=== PATIENT | female | born 1950 | race Hispanic/Latino ===

== ENCOUNTER 2024-09-24 14:41 | Emergency (ER) | payer MEDICARE ==
[~2024-09-24] VITALS: Ht 160 cm; Wt 93.0 kg
[~2024-09-24 14:41] MED LIST: ASCO100031 PO; CHOL200074 PO; DOCU240C90 PO; FE F PO; FERR325T22 PO; FURO40TA5 PO; INSU100I3 SQ; INSU3INS3 SQ; LEVO500T2 PO; LOSA100T59 PO
[2024-09-24 14:45] VITALS: BP_DIAS 73
[2024-09-24 15:29] LABS: BASOPHILS # (AUTO) 0.03 K/uL (0.00-0.20); BASOPHILS % (AUTO) 0.4 % (0.0-5.0); EOSINOPHILS # (AUTO) 0.24 K/uL (0.00-0.70); EOSINOPHILS % (AUTO) 3.1 % (0.0-8.0); IMMATURE GRANULOCYTE ABSOLUTE 0.07 K/uL (0-1); MEAN CORPUSCULAR HEMOGLOBIN 30.6 pg (27.0-33.0); MEAN CORPUSCULAR HGB CONC 33.7 g/dL (32.0-36.0); MEAN CORPUSCULAR VOLUME 90.7 fL (79-99); MONOCYTES # (AUTO) 0.6 K/uL (0.1-1.0); MONOCYTES % (AUTO) 7.5 % (3.0-13.0); NEUTROPHILS # (AUTO) 4.9 K/uL (1.8-7.7); NEUTROPHILS % (AUTO) 62.1 % (40.0-77.0); PLATELET COUNT (AUTO) 285 K/uL (130-400); RED BLOOD CELL COUNT(AUTO) 3.86 MIL/uL (4.00-5.50); RED CELL DISTRIBUTION WIDTH 12.5 % (11.0-15.5); WHITE BLOOD COUNT (AUTO) 7.8 K/uL (4.8-10.8)
--- NOTE | 2024-09-24 15:29 | ERN ---
General Chief Complaint: Lower Extremity Pain/Injury Stated Complaint: LEG PAIN Time Seen by MD: 14:45 History of Present Illness Initial Comments 74-year-old female with a history of dementia presents to the ED via EMS for evaluation of right lower extremity swelling onset 2 weeks ago. Family reports redness, but denies any other associated symptoms. Family states that patient had an infection on that leg a while ago. No other medical or surgical history mentioned. Allergies: Coded Allergies: cephalexin (Verified Allergy, Unknown, RASH, 09/01/17) Home Meds Active Scripts Hydrocortisone (Hydrocortisone 2.5% Oint) 2.5 % Oint, 1 APPL TP BID for 10 Days, #60 GM 0 Refills apply to affected area(s) Prov:LUIS E AGUILERA DO 09/24/24 Levofloxacin (Levaquin 750Mg Tabs) 750 Mg Tablet, 1 TAB PO DAILY for 10 Days, #10 TAB 0 Refills Prov:LUIS E AGUILERA DO 09/24/24 Levofloxacin (Levaquin) 500 Mg Tablet, 500 MG PO DAILY, #14 TAB Prov:JL THAKKAR MD 09/03/17 Reported Medications Insulin Aspart (Novolog Flexpen) 100 Unit/1 Ml Insuln.pen, 0 SQ ACDINNER, SYRINGE 09/02/17 Insulin Glargine,Hum.rec.anlog (Lantus Solostar) 100 Unit/1 Ml Insuln.pen, 38 UNIT SQ ACBKFST, SYRINGE 09/02/17 Ascorbic Acid (Vitamin C) 1,000 Mg Tablet, 1000 MG PO AM, TAB 09/02/17 Cholecalciferol (Vitamin D3) (Vitamin D-3) 2,000 Unit Capsule, 1000 UNIT PO AM, CAP 09/02/17 Fe Fumarate/Brenda/FA/Bcomp&C (Nephron FA Tablet) 1 Each Tablet, 1 EACH PO AM, TAB 09/02/17 Ferrous Sulfate (Ferrous Sulfate) 325 Mg Tablet, 325 MG PO AM, TAB 09/02/17 Losartan Potassium (Losartan Potassium) 100 Mg Tablet, 100 MG PO AM, TAB 09/02/17 Docusate Calcium (Stool Softener) 240 Mg Capsule, 240 MG PO AM, CAP 09/02/17 Furosemide (Furosemide) 40 Mg Tablet, 40 MG PO BID, TAB 09/02/17 Past Medical History Past Medical History: CHF, Diabetes-Type II, Hypertension Past Surgical History: None ROS Dictation Constitutional: Negative for fever,chills, and weight loss Eyes: Negative for injury, pain,redness, and discharge ENT: Negative for injury,pain or swelling Cardiovascular: Negative for chest pain, palpitations, and edema Respiratory: Negative for shortness of breath, cough, and wheezing, Abdomen/GI: Negative for abdominal pain, nausea, vomiting, diarrhea, and constipation Back: Negative for injury and pain : Negative for injury, bleeding and discharge MS/Extremity: Lower extremity swelling and erythema, Negative for injury and deformity Skin: Negative for rash, and discoloration Neuro: Negative for headache, weakness, numbness, tingling, and seizure Physical Exam Physical Exam Dictation General: awake, alert, NAD Head/Face: Normocephalic, atraumatic Eyes: PERRL, EOMI, vision at baseline ENT: oral cavity clear, TMs clear, no signs of infection Neck: Trachea midline, supple, no nuchal rigidity Cardiovascular: RRR, normal S1/S2, No MRGs, no JVD Respiratory: CTAB, no respiratory distress, No rales or wheezes Abdomen: Soft, non-tender, non-distended, normal bowel sounds, no guarding or rebound. Skin: Warm, dry, normal turgor, no rash MS/Extremity: Pulses equal, no cyanosis, neurovascular intact, right leg swelling, right anterior calf erythema Results Laboratory and Microbiology Lab and Micro Result Laboratory Tests Test 09/24/24 15:00 09/24/24 15:05 09/24/24 15:25 Whole Blood Glucose 118 MG/DL (70-110) H White Blood Count 7.8 K/uL (4.8-10.8) Red Blood Count 3.86 MIL/uL (4.00-5.50) L Hemoglobin 11.8 g/dL (12.0-16.0) L Hematocrit 35.0 % (36-48) L Mean Corpuscular Volume 90.7 fL (79-99) Mean Corpuscular Hemoglobin 30.6 pg (27.0-33.0) Mean Corpuscular Hemoglobin Concent 33.7 g/dL (32.0-36.0) Red Cell Distribution Width 12.5 % (11.0-15.5) Platelet Count 285 K/uL (130-400) Mean Platelet Volume 10.4 fL (7.5-10.5) Immature Granulocyte % (Auto) 0.9 % (0-1) Neutrophils (%) (Auto) 62.1 % (40.0-77.0) Lymphocytes (%) (Auto) 26.0 % (21.0-51.0) Monocytes (%) (Auto) 7.5 % (3.0-13.0) Eosinophils (%) (Auto) 3.1 % (0.0-8.0) Basophils (%) (Auto) 0.4 % (0.0-5.0) Neutrophils # (Auto) 4.9 K/uL (1.8-7.7) Lymphocytes # (Auto) 2.0 K/uL (1.0-4.8) Monocytes # (Auto) 0.6 K/uL (0.1-1.0) Eosinophils # (Auto) 0.24 K/uL (0.00-0.70) Basophils # (Auto) 0.03 K/uL (0.00-0.20) Absolute Immature Granulocyte (auto 0.07 K/uL (0-1) Nucleated Red Blood Cells 0.0 % (0.0-0.19) Sodium Level 135 mmol/L (136-145) L Potassium Level 4.5 mmol/L (3.5-5.1) Chloride Level 100 mmol/L (101-111) L Carbon Dioxide Level 30 mmol/L (21-32) Blood Urea Nitrogen 64 mg/dL (7-18) H Creatinine 1.4 mg/dL (0.5-1.0) H Glomerular Filtration Rate Calc 39 mL/min (>90) Random Glucose 111 mg/dL (70-105) H Lactic Acid Level 2.0 mmol/L (0.8-2.5) Total Calcium 10.9 mg/dL (8.5-10.1) H Magnesium Level 2.10 mg/dL (1.80-2.40) Total Bilirubin 0.3 mg/dL (0.2-1.0) Direct Bilirubin < 0.1 mg/dL (0.0-0.3) Aspartate Amino Transf (AST/SGOT) 27 U/L (10-37) Alanine Aminotransferase (ALT/SGPT) 10 U/L (12-78) L Alkaline Phosphatase 65 U/L (50-136) Total Creatine Kinase 153 U/L (21-232) # Troponin I High Sensitivity 6.3 ng/L (4-50) B-Type Natriuretic Peptide 42 pg/mL (0-100) Total Protein 6.8 g/dL (6.0-8.3) Albumin 3.3 g/dL (3.5-5.0) L Procalcitonin 0.12 ng/mL (0.05-0.5) Urine Color LIGHT-RED (YELLOW) Urine Appearance HAZY (CLEAR) Urine pH 6.5 (5.0-8.0) Urine Specific [place] 1.004 (1.001-1.031) Urine Protein NEGATIVE mg/dL (NEGATIVE) Urine Glucose (UA) NEGATIVE mg/dL (NEGATIVE) Urine Ketones NEGATIVE mg/dL (NEGATIVE) Urine Occult Blood LARGE (NEGATIVE) H Urine Nitrate NEGATIVE (NEGATIVE) Urine Bilirubin NEGATIVE mg/dL (NEGATIVE) Urine Urobilinogen 0.2 mg/dL (0.2-1.0) Urine Leukocyte Esterase NEGATIVE Trisha/uL Urine RBC TNTC /HPF (0-1) H Urine WBC 2-5 /HPF (0-1) H Urine Squamous Epithelial Cells RARE /HPF (0-2) Urine Bacteria None /HPF (None Seen) Labs Reviewed?: Yes MDM CBC: no leukocytosis or shift. Metabolic panel shows some mild dehydration elevated BUN to creatinine ratio. Glucose stable. Lactic acid stable. Liver enzymes stable. CK normal. Troponin normal. BNP normal procalcitonin normal. Urinalysis shows some some blood otherwise unremarkable CXR per my an independent interpretation shows no focal infiltrates or abnormalities. Ultrasound of the lower extremity shows no signs of acute DVT per my independent interpretation. I have low suspicion for any life threats. This appears to be chronic swelling. There is a small area of redness. Discussed with the family the plan for this, they are worried that it may be cellulitis so we will give a course of oral antibiotics and recommend PCP follow up. MDM: Differential diagnosis: Leg swelling, DVT Previous outside records reviewed: Old ER visits. Need for hospitalization: Patient does not meet criteria for hospitalization. Need for emergency major/minor surgery: No Patient's prior external medical records from other ER visits were reviewed by me as indicated. Prior testing and results from previous visits were reviewed. Prior tests were taken into account with medical decision making and resource utilization, independent historian/historians were used to obtain complete me dical history. I independently interpreted the test that were performed, results were reviewed by me and considered findings on radiology if ordered. Medical management and examination interpretation discussions were had by me with other qualified healthcare professionals as indicated for the patient's care. ED Course Orders Procedure Category Date Status Time Cardiac Panel LAB 09/24/24 Complete 14:45 Cbc With Differential LAB 09/24/24 Complete 14:45 Basic Metabolic Panel LAB 09/24/24 Complete 14:45 B-Type Natriuretic LAB 09/24/24 Complete Peptide 14:45 Magnesium LAB 09/24/24 Complete 14:45 Urinalysis Profile LAB 09/24/24 Complete 14:45 Hepatic Function Panel LAB 09/24/24 Complete 14:45 Lactic Acid LAB 09/24/24 Complete 14:45 Procalcitonin LAB 09/24/24 Complete 14:45 Us Venous Doppler US 09/24/24 Resulted Unilateral 14:45 Chest 1vw RAD 09/24/24 Resulted 14:45 Vital Signs Date Time Temp Pulse Resp B/P (MAP) Pulse Ox O2 Delivery O2 Flow Rate FiO2 09/24/24 17:25 97.3 67 18 136/ 96 Room Air* 0 21 09/24/24 14:45 97.5 87 18 144/73 94 Room Air 09/24/24 14:45 97.5 83 18 144/73 94 Room Air* 0 21 DX & DISP Disposition: Discharge Departure Impression: Primary Impression: Right leg swelling Additional Impression: Lower extremity cellulitis Condition: Stable Scripts Hydrocortisone (Hydrocortisone 2.5% Oint) 2.5 % Oint 1 APPL TP BID for 10 Days, #60 GM 0 Refills apply to affected area(s) Prov: LUIS E AGUILERA DO 09/24/24 Levofloxacin (Levaquin 750Mg Tabs) 750 Mg Tablet 1 TAB PO DAILY for 10 Days, #10 TAB 0 Refills Prov: LUIS E AGUILERA DO 09/24/24 Additional Instructions: There are no signs of sepsis here today. Your vital signs are stable. Your labwork is unremarkable. The Ultrasound does not show any signs of blood clots. You may have a mild cellulitis, or skin infection. I've prescribed antibiotics and hydrocortisone cream. Use as prescribed. Please follow up with your primary doctor next week for re-evaluation. Return to the emergency department as needed. Referrals: LIZETTE LEIVA (PCP) I have reviewed, & agreed with my scribe's, documentation. (Entered by Poppy Ruiz, acting as a scribe for Dr. Aguilera) I personally scribed for LUIS E AGUILERA DO (HANNAH) on 09/24/24 at 15:29. Electronically submitted by Poppy Ruiz ([email or web address]). LUIS E AGUILERA DO Sep 24, 2024 15:29
[2024-09-24 15:35] LABS: BILIRUBIN,URINE NEGATIVE (NEGATIVE); GLUCOSE, URINE (UA) NEGATIVE (NEGATIVE); KETONES,URINE NEGATIVE (NEGATIVE); LEUKOCYTE ESTERASE ,URINE NEGATIVE Leu/uL (NEGATIVE); NITRATE,URINE NEGATIVE (NEGATIVE); OCCULT BLOOD,URINE LARGE (NEGATIVE); PH,URINE 6.5 (5.0-8.0); PROTEIN,URINE NEGATIVE (NEGATIVE); UROBILINOGEN,URINE 0.2 mg/dL (0.2-1.0)
[2024-09-24 15:36] LABS: ADD UA MICROSCOPIC YES; COLOR,URINE LIGHT-RED (YELLOW)
[2024-09-24 15:37] LABS: APPEARANCE,URINE HAZY (CLEAR)
--- NOTE | 2024-09-24 15:39 | HMCIMG ---
US VENOUS DOPPLER UNILATERAL HISTORY: DVT COMPARISON: None TECHNIQUE: Right lower extremity venous Doppler ultrasound study was performed. FINDINGS: The right common femoral, femoral, popliteal, and posterior tibial veins are visualized. Normal flow with augmentation and compressibilities are demonstrated. Right greater saphenous vein is patent. IMPRESSION: 1. No evidence of deep venous thrombosis is seen.
[2024-09-24 15:45] LABS: MUCUS,URINE RARE LPF (None Seen); RBC,URINE TNTC /HPF (0-1); SQUAMOUS EPITHELIAL CELL,UR RARE /HPF (0-2)
[2024-09-24 15:51] LABS: B-TYPE NATRIURETIC PEPTIDE 42 pg/mL (0-100); CARBON DIOXIDE 30 mmol/L (21-32); CHLORIDE 100 mmol/L (101-111); CREATININE 1.4 mg/dL (0.5-1.0); GLOMERULAR FILTR. RATE CALC 39 mL/min (>90); GLUCOSE,RANDOM 111 mg/dL (70-105); POTASSIUM 4.5 mmol/L (3.5-5.1); SODIUM SERUM 135 mmol/L (136-145); UREA NITROGEN, BLOOD 64 mg/dL (7-18)
[2024-09-24 15:58] LABS: ALANINE AMINOTRANSFERASE 10 U/L (12-78); ALBUMIN 3.3 g/dL (3.5-5.0); ASPARTATE AMINOTRANSFERASE 27 U/L (10-37); BILIRUBIN,DIRECT < 0.1 mg/dL (0.0-0.3); BILIRUBIN,TOTAL 0.3 mg/dL (0.2-1.0); CREATINE KINASE, TOTAL 153 U/L (21-232); TOTAL PROTEIN, SERUM 6.8 g/dL (6.0-8.3)
--- NOTE | 2024-09-24 15:58 | HMCIMG ---
CHEST 1VW HISTORY: Fluid overload COMPARISON: 09/01/2017 FINDINGS: A frontal projection of the chest was obtained. Prominent interstitial markings are seen with possible superimposed infiltrates. The heart is borderline enlarged. Aortic calcifications are seen. Mild degenerative changes are seen. IMPRESSION: 1. Prominent interstitial markings are seen with possible superimposed infiltrates.
[2024-09-24] MEDS ORDERED: LEVO750T68 PO (16:35)
[2024-09-24] MEDS ORDERED: HC2530O TP (16:35)
[2024-09-24 17:25] VITALS: BP_SYST 136; PULSE 67; RESP 18; TEMP 97.3; O2SAT 96
== END 2024-09-24 17:10 | disposition home or self-care (01) ==
LOC: EDH 14:41
DX: L03.115 Cellulitis of right lower limb (principal); M79.604 Pain in right leg; E11.9 Type 2 diabetes mellitus without complications; F03.90 Unspecified dementia, unspecified severity, without behavioral disturbance, psychotic disturbance, mood disturbance, and anxiety; I11.0 Hypertensive heart disease with heart failure; I50.9 Heart failure, unspecified; Z79.899 Other long term (current) drug therapy; Z88.1 Allergy status to other antibiotic agents
CPT/HCPCS: 36415; 71045; 80048; 80076; 81001; 82550; 82948; 83605; 83735; 83880; 84145; 84484; 85025; 93971